=== PATIENT | female | born 1960 | race Caucasian/White ===

== ENCOUNTER 2017-03-07 11:24 | Emergency (ER) | payer MEDICAID ==
[~2017-03-07] VITALS: Ht 152.4 cm; Wt 70.0 kg
[2017-03-07] MEDS ORDERED: OXYCODONE HCL/ACETAMINOPHEN 5/325MG TABLET PO ONE (12:00)
[2017-03-07 12:12] VITALS: BP 135/89
== END 2017-03-07 13:20 | disposition home or self-care (01) ==
LOC: ER 12:22
DX: S52.501A Unspecified fracture of the lower end of right radius, initial encounter for closed fracture (principal); I10 Essential (primary) hypertension; F32.9 Major depressive disorder, single episode, unspecified; Z88.0 Allergy status to penicillin; W19.XXXA Unspecified fall, initial encounter; Y93.89 Activity, other specified; Y92.89 Other specified places as the place of occurrence of the external cause; Y99.8 Other external cause status
CPT/HCPCS: 29105; 73090; 73110; 99284; Z7610; A4565